=== PATIENT | female | born 1955 ===

== ENCOUNTER 2016-05-30 14:16 | Inpatient (IN) | payer MEDICAID ==
[~2016-05-30] VITALS: Ht 162.5 cm; Wt 90.7 kg
--- NOTE | ~2016-05-30 | PR ---
[place], [place] PROGRESS NOTE NAME: EMMANUEL HANDLEY UNIT #: [id number] ROOM: 311 DOCTOR: ANDREE SCHWARTZ MD BIRTHDATE: [birth year] DOS: 06/04/2016 CHIEF COMPLAINT: "I want to go home." SUMMARY OF THE VISIT: The patient was resting in her bed. Her movements seem to be lessening. She is still although very much all over the place and very hyper and labile in her presentation. She speaks loudly and jumps from topic to topic and is very somatically preoccupied still. MENTAL STATUS: She is alert and oriented to self, place, but not time. Mood is labile. Affect is inappropriate. She is somatically preoccupied. She has flight of ideas as well and she is disjointed in her thinking. She is tolerating the current medication regimen well. PLAN: I will increase the Cymbalta to 60 mg in the morning in order to combat the effect of component and to decrease pain. I will increase Clozaril to 200 mg at bedtime aiding her sleep and trying to decrease her mood lability and psychosis. We will engage in individual and mccray milieu therapy with the plan then to return to [facility] when stable. ANDREE SCHWARTZ MD CM:PNTRANS [id number] ANDREE SCHWARTZ MD 06/04/16 1227 interface
--- NOTE | ~2016-05-30 | DS ---
[place], [place] DISCHARGE SUMMARY NAME: EMMANUEL HANDLEY UNIT #: [id number] ROOM: 311 DOCTOR: ODALIS ESTRADA VICKY BIRTHDATE: [birth year] DOS: 06/07/2016 HISTORY OF PRESENT ILLNESS: This is a 61-year-old female, resident of [facility] in [place], [place], lengthy history of schizophrenia that has been decompensating over the last several weeks, becoming somatically preoccupied, mostly with rectal pain at the point where she is writhing in pain, yelling, screaming for help, not eating or sleeping well. I had a long lengthy medical workup for the rectal pain. Overall negative, some diverticulitis, a little bit of constipation in the lower intestines, but regular bowel movements while she was here. 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 HOSPITAL COURSE: She was started on Clozaril to help with the tardive dyskinesia from the years of antipsychotic use. The Clozaril was helping not only block the psychotic symptoms, but help reverse some of the tardive dyskinesia, also found to be vitamin D deficient, was started on vitamin D 50,000 international units every week. Eventually, she ended up on Cymbalta, Clozaril, and Vitamin D. MENTAL STATUS: The patient is alert and oriented to person, place, not time. Mood is definitely euthymic. Affect is more appropriate. She can still be somewhat preoccupied, but redirectable. No trevon or hypomania. No fixed delusions or paranoia. Her somatization does border on delusions, but again she is redirectable. PLAN: The patient is being discharged back to [facility]. Dr. Franco and myself will round on her and monitor her. She is being discharged on Clozaril 300 mg every day to help with the tardive dyskinesia. She is on Cymbalta 60 mg every day and vitamin D 50,000 international units every week. Clozaril is also going to help with some of her psychotic symptoms as well. [place], [place] DISCHARGE SUMMARY NAME: EMMANUEL HANDLEY UNIT #: [id number] ROOM: 311 DOCTOR: ODALIS ESTRADA BIRTHDATE: [birth year] VICKY ESTRADA CNP CM:OMID 1 0 ODALIS ESTRADA 06/07/16930 interface
--- NOTE | ~2016-05-30 | WRIGHTHP ---
[place], [place] PATIENT HISTORY AND PHYSICAL EXAM NAME: [facility]EL HAND[id number] UNIT #: [id number] ROOM: 311 DOCTOR: ANDREE SCHWARTZ MD BIRTHDATE: [birth year] DOS: 05/31/2016 INITIAL PSYCHIATRIC EVALUATION CHIEF COMPLAINT: "My rectum hurts do something now". HISTORY OF PRESENT ILLNESS: This is a 61-year-old white female who is a resident of [facility] in [place], [place]. The patient has a lengthy history of schizophrenia and has been decompensating over the last several weeks, she has become very much somatically preoccupied, mostly with rectal pain to the point where she is writhing in pain, yelling and screaming for help. She is not eating or sleeping well and she has undergone a lengthy medical workup for the rectal pain which to date has come up negative. Most recently, she had an MRI of the pelvis, which also showed no abnormalities. The patient has become increasingly agitated also becoming verbally and physically aggressive towards staff at the long-term care facility. She is admitted now to rule out organic factors and to attempt to stabilize on medication with the ultimate plan to return her back to [facility] in [place]. PAST MEDICAL HISTORY: Remarkable for osteoarthritis, COPD, GERD, hypertension and a history of schizophrenia or schizoaffective disorder. MENTAL STATUS: The patient is alert and oriented to person, place and very approximate to time. She was interviewed in her room as she rested in bed. She continued to be very agitated in her bed, jumping up and down, writhing almost to the point of falling out of the bed because of the perceived rectal pain. Her mood was very labile and affect at times inappropriate. She would smile and be pleasant, one moment and be very irritable the next. There does seem to be a somatic fixation. Attempts to redirect her were unsuccessful. Memory does seem to be relatively intact with some issues with short-term memory noted. DIAGNOSIS: Schizoaffective disorder. PLAN: The patient has been started on Clozaril. The patient does have significant tardive dyskinesia from years of antipsychotic use the Clozaril should not only block the psychotic symptoms, but it should help reverse the tardive dyskinesia. Screening examinations upon admission show her to have a low vitamin D level. She will be started on vitamin D 50,000 international units weekly. We will engage her in individual and mccray milieu activities with the ultimate plan to return back to the [facility] in [place] once psychiatrically stable. [place], [place] PATIENT HISTORY AND PHYSICAL EXAM NAME: EMMANUEL HANDLEY UNIT #: [id number] ROOM: 311 DOCTOR: ANDREE SCHWATRZ MD BIRTHDATE: [birth year] ANDREE SCHWARTZ MD CM:HISPHYS:PATIENT HISTORY AND PHYSICAL EXAMINATION [id number] ANDREE SCHWARTZ MD 05/31/16 1129 interface
--- NOTE | ~2016-05-30 | PR ---
[place], [place] PROGRESS NOTE NAME: EMMANUEL HANDLEY UNIT #: [id number] ROOM: 311 DOCTOR: ANDREE SCHWARTZ MD BIRTHDATE: [birth year] DOS: 06/02/2016 CHIEF COMPLAINT: "My rectum hurts. I am just miserable." SUMMARY OF THE VISIT: The patient was interviewed in her room where she was sitting on the edge of her bed. Of note, her rhythmic body movements and tongue thrusting seem to be trending toward improvement; however, she still complains of significant rectal pain and leg pain and appears extremely distraught and distressed. She reports that she is not sleeping or eating well. She convincingly denies medication side effects. MENTAL STATUS: She is alert and oriented with time gaps. Mood does seem to be depressed with anxious overtones and she is grossly psychotic and delusional. Memory has some gaps, but is intact. PLAN: I will increase the Clozaril to 150 mg at nighttime. This does seem to be impacting gradually on her psychotic symptoms and it is also improving her tardive dyskinesia. I will add Cymbalta 30 mg in the morning to see if this will combat the affective component and also help with some of the pain issues. We will engage her in individual and mccray milieu activity with the ultimate plan to return to [facility] when psychiatrically stable. ANDREE SCHWARTZ MD CM:PNTRANS [id number] ANDREE SCHWARTZ MD 06/02/16 1057 interface
--- NOTE | ~2016-05-30 | PR ---
[place], [place] PROGRESS NOTE NAME: EMMANUEL HANDLEY UNIT #: [id number] ROOM: 311 DOCTOR: ODALIS ESTRADA VICKY BIRTHDATE: [birth year] DOS: 06/03/2016 CHIEF COMPLAINT: "Good morning." SUMMARY OF VISIT: The patient was interviewed in her room. I had a lengthy conversation with nursing. She was somewhat behavioral yesterday, spitting out pills. They were able to get her evening dose in her. She, however, keeps pulling off her adult diapers, and this morning when they entered the room, she had painted the fulton in stool. When I asked the patient why she did that, she denied it. The patient's tardive dyskinesia has improved since the starting of the Clozaril. She did not complain of any pain with me since starting the Cymbalta. The Cymbalta was started to help with rectal and leg pain. She made good eye contact. Mostly, her tardive dyskinesia was noticeable when she became nervous or right before she answered questions, but there were moments where she sits quietly and not have any tardive or EPS. The patient's main complaint has always been constipation and pain in the rectum. She did state that, however, the medications that we have her on have improved that someone; that it is not completely gone, but it is better than it has been. She also asked how soon I thought she might be able to go back to her half-way. Of note, ____ states that she has some stool in the sigmoid colon heading towards the rectum. She also has some diverticula. So, this might be a combination of what is causing some of the pain. It should also be noted that she is having regular bowel movements, but she is also having copious amount of foul-smelling gas. MENTAL STATUS: She is alert and oriented to person, I think place, but not time. Mood, there are still some anxious overtones. She is grossly psychotic and delusional with staff. She was fine with me this morning. Denied any auditory or visual hallucinations. She did not express any delusions or psychosis with me. She is fixated on her bowel movements and the pain related to that, which is understandable. PLAN: Dr. Franco increased her Clozaril last night in the hopes that it will gradually impact her psychotic symptoms and improve her tardive dyskinesia. He also added Cymbalta in the morning to combat the effective component and the pain issues. She seems to be tolerating this. If she does well over the next 24 hours and we can get the a.m. dose in her today without her spitting it out, I would recommend maybe adding the evening dose as well. We will continue to try to engage in individual and mccray milieu therapy. Long-term goal would be to get her back to her nursing facility once stable. [place], [place] PROGRESS NOTE NAME: EMMANUEL HANDLEY UNIT #: [id number] ROOM: 311 DOCTOR: ODALIS ESTRADA BIRTHDATE: [birth year] VICKY ESTRADA CNP CM:JACQUELINE [id number] ODALIS ESTRADA 06/03/1606 interface
--- NOTE | ~2016-05-30 | PR ---
[place], [place] PROGRESS NOTE NAME: EMMANUEL HANDLEY UNIT #: [id number] ROOM: 311 DOCTOR: ANDREE SCHWARTZ MD BIRTHDATE: [birth year] DOS: 06/05/2016 CHIEF COMPLAINT: "I don't want to go back there, I am not better yet." SUMMARY OF THE VISIT: The patient was interviewed in the dining area, she sat eating her breakfast. Overall, her tongue resting has lessened perhaps by 50%. She continues to complain, however, of pain in her rectum and states that she is no better than when she first came in; however, she couches this by quickly then stating she does not want to go back to [facility] stating she does not like it. She reports poor sleep and appetite, although she was eating most of her breakfast by the time I had come in to interview her. I will discuss this case with social contact worker and nursing to determine what reality is. MENTAL STATUS: She is alert and oriented to person, place, but not time. Mood does seem to be trending towards euthymia more. There is still some manic preoccupation. There is no trevon or hypomania. Her somatization borders on the delusion. She is tolerating the current medication regimen well. I see no side effects. She denies suicidality, homicidality. Memory has gaps. PLAN: I will recheck a CBC with diff today, so we can continue the Clozaril. I will increase Clozaril from 200 mg at bedtime to 300 mg at bedtime, hoping to improve sleep dramatically as well as impacting positively on her delusional somatization as well as improving her overall mental status. We will engage in individual and mccray milieu activity with the plan then to return back to [facility] when stable. ANDREE SCHWARTZ MD CM:PNTRANS 4 12 ANDREE SCHWARTZ MD 06/05/161212 interface
[2016-05-30] MEDS ORDERED: FLUTICASON0.05 MG/AC NAS (14:59)
[2016-05-30] MEDS ORDERED: ATARAX,VISTARIL50 MG PO (15:00)
[2016-05-30] MEDS ORDERED: MELATONIN5 M6 PO (15:01)
[2016-05-30] MEDS ORDERED: CLARITIN10 MG PO (15:01)
[2016-05-30] MEDS ORDERED: ONE-TABLET-DAI1 EACH PO (15:02)
[2016-05-30] MEDS ORDERED: NUED1CAP PO (15:03)
[2016-05-30] MEDS ORDERED: COLACE100 MG PO (15:04)
[2016-05-30] MEDS ORDERED: OMEPRAZOLE D/R20 MG PO (15:07)
[2016-05-30] MEDS ORDERED: POLYETHYLENE GL1 P16 (15:08)
[2016-05-30] MEDS ORDERED: VITAMIN E400 UNI2 PO (15:09)
[2016-05-30] MEDS ORDERED: BENZTROPINE MESY1 MG PO (15:10)
[2016-05-30] MEDS ORDERED: BIOFREEZE118 ML TP (15:11)
[2016-05-30] MEDS ORDERED: VISTARIL25 M2 PO (15:12)
[2016-05-30] MEDS ORDERED: BENTYL10 MG PO (15:13)
[2016-05-30] MEDS ORDERED: GOOD NEIGHBOR650 MG PO (15:16)
[2016-05-30] MEDS ORDERED: ALBUTEROL SULFA60 ML INH (15:17)
[2016-05-30] MEDS ORDERED: Haldol Concen2 MG/ML IM (15:19)
[2016-05-30] MEDS ORDERED: PROMETHAZINE25 M1 PO (15:19)
[2016-05-30] MEDS ORDERED: VISTARIL50 MG PO (15:20)
[2016-05-30] MEDS ORDERED: DRY MOUTH MM (15:21)
[2016-05-30 18:20] LABS: BASO % 0.4 % (0.0-1.0); EOS # 0.2 10*3/uL (0.0-0.4); EOS % 2.6 % (1.0-4.0); HEMOGLOBIN 14.1 g/dl (12.0-16.0); LYMPH # 2.5 10*3/uL (1.3-4.4); LYMPH % 34.9 % (27.0-41.0); MEAN CELL VOLUME 89.7 fl (81.0-99.0); MEAN CORPUSCULAR HGB 31.6 pg (27.0-31.0); MEAN CORPUSCULAR HGB CONC 35.3 g/dl (33.0-37.0); MEAN PLATELET VOLUME 9.3 fl (9.6-12.3); MONO # 0.7 10*3/uL (0.1-1.0); MONO % 10.2 % (3.0-9.0); NEUT # 3.6 10*3/uL (2.3-7.9); NEUT % 51.8 % (47.0-73.0); PLATELET COUNT AUTOMATED 337 10*3/uL (130-400); RED BLOOD COUNT 4.46 10*6/uL (4.10-5.10); RED CELL DISTRI WIDTH 12.6 % (0-14.5)
[2016-05-30 18:47] LABS: CHOLESTEROL 184 mg/dL (<200); HDL CHOLESTEROL 67 mg/dl (40-60); LDL CHOLESTEROL 85 mg/dL (9-159); TRIGLYCERIDES 159 mg/dl (<150); VLDL CHOLESTEROL 32 mg/dL (6-40)
[2016-05-30 19:06] LABS: HEMOGLOBIN A1c 5.1 % (4.8-5.6)
[2016-05-31 02:08] LABS: BILIRUBIN NEGATIVE (NEGATIVE); BLOOD NEGATIVE (NEGATIVE); CLARITY SL CLOUDY (CLEAR); COLOR YELLOW (YELLOW); GLUCOSE NEGATIVE (NEGATIVE); KETONE TRACE (NEGATIVE); LEUKO ESTERASE NEGATIVE (NEGATIVE); NITRITE NEGATIVE (NEGATIVE); PROTEIN TRACE (NEGATIVE); SPECIFIC GRAVITY 1.025 (1.005-1.030); UROBILINOGEN 0.2 E.U./dl (0.2-1.0)
[2016-05-31 02:17] LABS: CALCIUM OXALATE CRYSTALS 1+; EPITHELIAL CELLS 20-25; MUCOUS 1+
[2016-05-31 02:18] LABS: BACTERIA TRACE; URINE REFLEX COMMENT NO (NO)
[2016-05-31 07:47] LABS: ALBUMIN 3.4 gm/dl (3.1-4.5); ALKALINE PHOSPHATASE 100 U/L (45-117); BILIRUBIN, TOTAL 0.3 mg/dl (0.2-1.0); BUN 21 mg/dl (7-24); CARBON DIOXIDE 28 mmol/L (21-32); CHLORIDE 106 mmol/L (98-107); EST GLOM FILT AFRICAN AMERICAN > 60 ml/min; GLUCOSE 94 mg/dL (65-99); POTASSIUM 3.9 mmol/L (3.5-5.1); SGOT/AST 18 IU/L (3-35); SGPT/ALT 24 U/L (12-78); SODIUM 146 mmol/L (136-145); TOTAL PROTEIN 7.1 gm/dL (6.4-8.2)
[2016-05-31 07:53] LABS: THYROID STIM HORMONE (HS) 0.622 uIU/ml (0.358-4.75)
[2016-05-31 08:37] LABS: VITAMIN D, 25-HYDROXY 22.4 ng/mL (30-100)
[2016-06-01 07:21] LABS: BUN 23 mg/dl (7-24); CARBON DIOXIDE 27 mmol/L (21-32); CHLORIDE 110 mmol/L (98-107); EST GLOM FILT AFRICAN AMERICAN > 60 ml/min; GLUCOSE 99 mg/dL (65-99); SODIUM 147 mmol/L (136-145)
[2016-06-02 08:40] LABS: BUN 22 mg/dl (7-24); CARBON DIOXIDE 29 mmol/L (21-32); CHLORIDE 108 mmol/L (98-107); EST GLOM FILT AFRICAN AMERICAN > 60 ml/min; GLUCOSE 139 mg/dL (65-99); POTASSIUM 3.9 mmol/L (3.5-5.1); SODIUM 147 mmol/L (136-145)
[2016-06-05 10:29] LABS: BASO % 0.3 % (0.0-1.0); EOS # 0.1 10*3/uL (0.0-0.4); EOS % 2.1 % (1.0-4.0); HEMATOCRIT 39.9 % (37.0-47.0); HEMOGLOBIN 13.4 g/dl (12.0-16.0); LYMPH # 1.8 10*3/uL (1.3-4.4); LYMPH % 25.8 % (27.0-41.0); MEAN CELL VOLUME 92.8 fl (81.0-99.0); MEAN CORPUSCULAR HGB 31.2 pg (27.0-31.0); MEAN CORPUSCULAR HGB CONC 33.6 g/dl (33.0-37.0); MEAN PLATELET VOLUME 9.5 fl (9.6-12.3); MONO # 0.6 10*3/uL (0.1-1.0); NEUT # 4.2 10*3/uL (2.3-7.9); NEUT % 62.2 % (47.0-73.0); PLATELET COUNT AUTOMATED 313 10*3/uL (130-400); RED CELL DISTRI WIDTH 12.5 % (0-14.5); WHITE BLOOD COUNT 6.8 10*3/uL (4.8-10.8)
[2016-06-06 07:40] LABS: BASO % 0.5 % (0.0-1.0); EOS # 0.2 10*3/uL (0.0-0.4); EOS % 3.9 % (1.0-4.0); HEMATOCRIT 35.5 % (37.0-47.0); HEMOGLOBIN 12.2 g/dl (12.0-16.0); LYMPH # 1.8 10*3/uL (1.3-4.4); LYMPH % 31.5 % (27.0-41.0); MEAN CORPUSCULAR HGB 31.3 pg (27.0-31.0); MEAN CORPUSCULAR HGB CONC 34.4 g/dl (33.0-37.0); MEAN PLATELET VOLUME 9.7 fl (9.6-12.3); MONO # 0.6 10*3/uL (0.1-1.0); MONO % 9.7 % (3.0-9.0); NEUT # 3.1 10*3/uL (2.3-7.9); PLATELET COUNT AUTOMATED 285 10*3/uL (130-400); RED CELL DISTRI WIDTH 12.4 % (0-14.5); WHITE BLOOD COUNT 5.7 10*3/uL (4.8-10.8)
[2016-06-06 08:05] LABS: BUN 14 mg/dl (7-24); CARBON DIOXIDE 28 mmol/L (21-32); CHLORIDE 106 mmol/L (98-107); EST GLOM FILT AFRICAN AMERICAN > 60 ml/min; GLUCOSE 100 mg/dL (65-99); POTASSIUM 3.7 mmol/L (3.5-5.1); SODIUM 143 mmol/L (136-145)
[2016-06-07] MEDS ORDERED: VITAMIN D50000 I3 PO (09:08)
[2016-06-07] MEDS ORDERED: DULOXETINE HCL60 MG PO (09:08)
[2016-06-07] MEDS ORDERED: CLOZAPINE100 MG PO (09:08)
== END 2016-06-07 13:05 | disposition other institution (70) | DRG 885 ==
LOC: 3N 14:16
PROVIDERS: Internal Medicine; Psychiatry & Neurology Psychiatry; Student in an Organized Health Care Education/Training Program
DX: F25.0 Schizoaffective disorder, bipolar type (principal); I10 Essential (primary) hypertension; M19.90 Unspecified osteoarthritis, unspecified site; J44.9 Chronic obstructive pulmonary disease, unspecified; K21.9 Gastro-esophageal reflux disease without esophagitis; Z96.642 Presence of left artificial hip joint; F41.9 Anxiety disorder, unspecified; G24.01 Drug induced subacute dyskinesia; Z87.891 Personal history of nicotine dependence; Z90.49 Acquired absence of other specified parts of digestive tract; Z88.0 Allergy status to penicillin; Z88.2 Allergy status to sulfonamides; Z88.6 Allergy status to analgesic agent; Z79.899 Other long term (current) drug therapy